=== PATIENT | female | born 1975 | race Caucasian/White ===

== ENCOUNTER 2016-12-14 17:08 | Emergency (ER) | payer SELFPAY ==
[~2016-12-14] VITALS: Ht 157.5 cm; Wt 76.2 kg
[~2016-12-14 17:08] MED LIST: CHRO200C PO; METF500T4 PO; NORE-132 PO; OMEG1CAP27 PO; PREN-2 PO
[2016-12-14 17:45] LABS: BILIRUBIN,URINE NEGATIVE (NEG); GLUCOSE,URINE 500 mg/dL (NEG); NITRITE,URINE NEGATIVE (NEG); PH,URINE 5.5; PROTEIN,URINE NEGATIVE (NEG-TRACE); UROBILINOGEN,URINE 0.2 mg/dL (0.2 mg/dL)
[2016-12-14 17:53] LABS: BACTERIA,URINE FEW /HPF (0-FEW); RBC,URINE OCC /HPF (0-2); SQUAMOUS EPITHELIAL CELL,UR MANY /LPF
[2016-12-14] MEDS ORDERED: IV NORMAL SALINE 1000ML BAG 1,000 ML IV SCH (18:30)
[2016-12-14] MEDS ORDERED: ACETAMINOPHEN 500 MG TABLET PO ONE (18:30)
[2016-12-14 18:40] LABS: BASO % 1 % (0-3); EOS % 0 % (0-3); HEMATOCRIT 43.7 % (36.0-47.0); HEMOGLOBIN 14.6 g/dL (12.0-15.5); LYMPH # 0.8 x10^3/uL (1.0-4.8); LYMPH % 9 % (24-48); MEAN CORPUSCULAR HEMOGLOBIN 30 pg (25-35); MEAN CORPUSCULAR HGB CONC 33 g/dL (31-37); MEAN CORPUSCULAR VOLUME 89 fL (79-100); MONO % 7 % (0-9); NEUT % 84 % (31-73); PLATELET COUNT 248 x10^3/uL (140-400); RED BLOOD COUNT 4.89 x10^6/uL (3.50-5.40); RED CELL DISTRIBUTION WIDTH 13.9 % (11.5-14.5)
[2016-12-14 18:47] LABS: CALCIUM 8.4 mg/dL (8.5-10.1); CREATININE 0.7 mg/dL (0.6-1.0); GFR 93.2; POTASSIUM 3.8 mmol/L (3.5-5.1)
[2016-12-14 20:24] VITALS: BP 113/65
[2016-12-14] MEDS ORDERED: DEXAMETHASONE SOD PHOS 4 MG/ML VIAL PO ONE (20:30)
--- NOTE | 2016-12-14 20:41 | ED.ADGEN ---
Past Medical History Past Medical History: Hypothyroid, Migraines, Ovarian Cyst Additional Past Medical Histor: POCS Past Surgical History: No Surgical History Alcohol Use: Rarely Drug Use: None Adult General Chief Complaint Chief Complaint: MULTIPLE COMPLAINTS HPI HPI Patient is a 41 year old woman, history of migraines, ovarian cyst, who presents to the emergency department with a complaint of sore throat, cough, body aches, and fever that began last night. Patient states that she is "aching all over", and feels weak. She states that yesterday her daughter fell off a float into a chlorinated pool, and she had a diving to pull out. Patient states that she did swallow a lot of water, and was coughing and "vomiting up" water for several minutes afterwards. She states she has had a cough productive of yellow sputum since that time. Denies any exposures, any diarrhea or vomiting, states that she was exposed to a friend who is being treated for typhoid a week ago. Her symptoms all began last night as stated, she is not experiencing any GI complaints or rashes, no swelling of the extremities. Patient states that she used ibuprofen about an hour ago, and that she also took a dose of penicillin and amoxicillin that "a friend had", earlier today. Oral temperature is 99.6 in the ED with a heart rate of 113, patient is normotensive, oxygen saturation of 95-98% on room air with respiratory rate of 20 that is unlabored. Review of Systems Review of Systems Constitutional: Fever, no chills. Eyes: Denies change in visual acuity. [] HENT: Nasal congestion and sore throat. [] Respiratory: Cough, productive of yellow sputum, no shortness of breath. Cardiovascular: Denies chest pain or edema. [] GI: Denies abdominal pain, nausea, vomiting, bloody stools or diarrhea. [] : Denies dysuria. [] Musculoskeletal: Denies back pain or joint pain. Body aches. Integument: Denies rash. [] Neurologic: Denies headache, focal weakness or sensory changes. [] Endocrine: Denies polyuria or polydipsia. [] Lymphatic: Denies swollen glands. [] Psychiatric: Denies depression or anxiety. [] Current Medications Current Medications Current Medications Medications (Trade) Dose Ordered Sig/Rony Start Time Stop Time Status Last Admin Dose Admin Acetaminophen (Tylenol) 1,000 mg 1X ONCE 12/14/16 18:30 12/14/16 18:31 DC 12/14/16 18:42 1,000 MG Dexamethasone Sodium Phosphate (Decadron) 6 mg 1X ONCE 12/14/16 20:30 12/14/16 20:31 Sodium Chloride 1,000 ml @ 1,000 mls/hr Q1H 12/14/16 18:30 12/14/16 19:29 DC 12/14/16 18:43 1,000 MLS/HR Allergies Allergies Allergies Coded Allergies Type Severity Reaction Last Updated Verified morphine Allergy Severe anaphylaxis 07/23/13 Yes codeine Allergy Intermediate nausea/vomiting 07/23/13 Yes latex Allergy Intermediate rash and swelling 07/23/13 Yes prochlorperazine Allergy Intermediate "I flop around like a fish" 07/19/14 Yes Physical Exam Physical Exam Constitutional: Well developed, well nourished, no acute distress, non-toxic appearance. [] HENT: Normocephalic, atraumatic, bilateral external ears normal, oropharynx moist, oropharynx is injected, with swelling of the tonsils bilaterally, patient noted to have a yellowish exudate on left tonsil, no evidence of unilateral swelling or concern for peritonsillar abscess, no involvement of the mucosa aside from that described, no petechiae or other concerning findings identified, no oral exudates, nose normal. [] Eyes: PERRLA, EOMI, conjunctiva normal, no discharge. [] Neck: Normal range of motion, no tenderness, supple, no stridor. [] Cardiovascular:Heart rate regular rhythm, no murmur, S1, S2, rubs or gallops. [] Lungs & Thorax: Bilateral breath sounds clear to auscultation, no wheezing, rhonchi, rales. No chest or crepitus or tenderness. [] Abdomen: Bowel sounds normal, soft, no rebound, rigidity, no guarding, no tenderness, no masses, no pulsatile masses. [] Skin: Warm, dry, no erythema, no rash. [] Back: No tenderness, no CVA tenderness. [] Extremities: No tenderness, no cyanosis, no clubbing, ROM intact, no edema. Negative Homans sign. [] Neurologic: Alert and oriented X 3, normal motor function, normal sensory function, no focal deficits noted. [] Psychologic: Affect normal, judgement normal, mood normal. [] Current Patient Data Vital Signs Vital Signs Date Time Temp Pulse Resp B/P (MAP) Pulse Ox O2 Delivery O2 Flow Rate FiO2 12/14/16 17:24 99.6 113 20 134/77 (96) 94 Room Air 99.6 Lab Values Laboratory Tests Test 12/14/16 16:25 12/14/16 17:15 12/14/16 18:25 POC Urine HCG, Qualitative Hcg negative (Negative) Urine Collection Type Unknown Urine Color Yellow Urine Clarity Cloudy Urine pH 5.5 Urine Specific [place] 1.025 Urine Protein Negative mg/dL (NEG-TRACE) Urine Glucose (UA) 500 mg/dL (NEG) Urine Ketones (Stick) Negative mg/dL (NEG) Urine Blood Large (NEG) Urine Nitrite Negative (NEG) Urine Bilirubin Negative (NEG) Urine Urobilinogen Dipstick 0.2 mg/dL (0.2 mg/dL) Urine Leukocyte Esterase Negative (NEG) Urine RBC Occ /HPF (0-2) Urine WBC 1-4 /HPF (0-4) Urine Squamous Epithelial Cells Many /LPF Urine Bacteria Few /HPF (0-FEW) Urine Mucus Marked /LPF White Blood Count 9.0 x10^3/uL (4.0-11.0) Red Blood Count 4.89 x10^6/uL (3.50-5.40) Hemoglobin 14.6 g/dL (12.0-15.5) Hematocrit 43.7 % (36.0-47.0) Mean Corpuscular Volume 89 fL (79-100) Mean Corpuscular Hemoglobin 30 pg (25-35) Mean Corpuscular Hemoglobin Concent 33 g/dL (31-37) Red Cell Distribution Width 13.9 % (11.5-14.5) Platelet Count 248 x10^3/uL (140-400) Neutrophils (%) (Auto) 84 % (31-73) H Lymphocytes (%) (Auto) 9 % (24-48) L Monocytes (%) (Auto) 7 % (0-9) Eosinophils (%) (Auto) 0 % (0-3) Basophils (%) (Auto) 1 % (0-3) Neutrophils # (Auto) 7.6 x10^3uL (1.8-7.7) Lymphocytes # (Auto) 0.8 x10^3/uL (1.0-4.8) L Monocytes # (Auto) 0.6 x10^3/uL (0.0-1.1) Eosinophils # (Auto) 0.0 x10^3/uL (0.0-0.7) Basophils # (Auto) 0.0 x10^3/uL (0.0-0.2) Sodium Level 139 mmol/L (136-145) Potassium Level 3.8 mmol/L (3.5-5.1) Chloride Level 107 mmol/L (98-107) Carbon Dioxide Level 24 mmol/L (21-32) Anion Gap 8 (6-14) Blood Urea Nitrogen 11 mg/dL (7-20) Creatinine 0.7 mg/dL (0.6-1.0) Estimated GFR (Cockcroft-Gault) 93.2 Glucose Level 132 mg/dL (70-99) H Calcium Level 8.4 mg/dL (8.5-10.1) L Laboratory Tests 12/14/16 18:25 Laboratory Tests 12/14/16 18:25 EKG EKG ECG: Rhythm strip: Heart rate 100 bpm, sinus rhythm, no ectopy. On reevaluation , patient's heart rate is 88, sinus rhythm, no ectopy. As interpreted by me. [] Radiology/Procedures Radiology/Procedures Chest x-ray: PA and lateral: Normal cardiopulmonary silhouette, no infiltrates, no effusions, no pneumothorax, no soft tissue or bony abnormality is identified. As interpreted by me.] Course & Med Decision Making Course & Med Decision Making Pertinent Labs and Imaging studies reviewed. (See chart for details) Patient without rash or GI symptoms, vaccinations are up-to-date, discussed the patient that this is not consistent with a typhoid infection. Patient with mild sinus tachycardia, received acetaminophen, IV fluids in the ED, laboratories as were obtained basic patient's complaints of weakness. Chest x-ray also obtained. No normalities were identified, no evidence of airspace disease or concerning laboratory abnormalities. Strep swab was also negative in the ED. Patient received Decadron 6 mg orally in the ED without issue. On reevaluation heart rate is now in the 80s, although will occasionally bounce up to the 90s and low 100s, patient remains stable otherwise on the monitor with oxygen saturations in the upper 90s, unlabored respirations as stated. No indications for antibiotic use. Symptoms are consistent with a viral syndrome, no evidence of delayed injury from water inhalation. Patient instructed to not take other people's medications, including antibiotics, instructed to take acetaminophen and ibuprofen as directed on the packaging [id number], to stay well- hydrated, and to return to the ED for concerning symptoms as discussed. Patient discharged home in stable condition with plan as above. Dragon Disclaimer Dragon Disclaimer This electronic medical record was generated, in whole or in part, using a voice recognition dictation system. Departure Impression: Primary Impression: Viral syndrome Disposition: HOME, SELF-CARE Condition: IMPROVED VALENTIN FREITAS DO Dec 14, 2016 20:41
[2016-12-15 07:00] LABS: NEGATIVE OBC STREP NEG; POSITIVE OBC STREP POS
--- NOTE | 2016-12-15 07:39 | RAD ---
Chest, 2 views, 12/14/2016: History: Cough, shortness of breath Comparison is made to a study from 07/19/2014. The heart size and pulmonary vascularity are normal. No pulmonary infiltrates are seen. There is no evidence of pleural fluid. IMPRESSION: No acute cardiopulmonary abnormality is detected.
== END 2016-12-14 20:35 | disposition home or self-care (01) ==
LOC: ER 17:08
DX: B34.9 Viral infection, unspecified (principal); E03.9 Hypothyroidism, unspecified; G43.909 Migraine, unspecified, not intractable, without status migrainosus; Z88.5 Allergy status to narcotic agent; Z88.8 Allergy status to other drugs, medicaments and biological substances; Z91.040 Latex allergy status
CPT/HCPCS: 36415; 71020; 80048; 81001; 81025; 85027; 87070; 87880; 96360; 99285; J1100; J7030